=== PATIENT | female | born 1940 | race Caucasian/White ===

== ENCOUNTER 2016-12-15 16:21 | Inpatient (IN) | payer MEDICARE, BC ==
[~2016-12-15] VITALS: Ht 162.6 cm; Wt 73.5 kg
--- NOTE | 2016-12-15 00:33 | NUR ---
Received call back from Dr. Ruddy Sidhu who is carton repairer for [employer]. Made aware of new admission and Med Reconciliation being done. Per MD, he will take care of Medication Reconciliation. Addendum: 12/16/16 at 0253 by NADIA GARCIA RN Correction on Date and Time: Spoke with Dr. Ruddy Sidhu on 12/16 @ 9903.
--- NOTE | 2016-12-15 21:30 | NUR ---
Received patient via Private Transportation through daughter in stable condition. Assisted patient to wheelchair with 2 person assist and wheeled into Acute Rehab unit. Tolerated transfer well. Patient is A/O x3 and verbally responsive. Farsi speaking, but able to speak and understand Maltese as well. No c/o pain and discomfort. No acute distress. No SOB. Patient received on room air. No labored breathing noted. Surgical site to right knee. Dressing is clean, dry and intact. Handled gently. Daughter at bedside. Dr. Solomon made aware of new admission. Verbalized that he would come in to hospital to check on patient. All needs attended to promptly at this time. Call light within reach. Bed in low position. Will continue to monitor.
--- NOTE | 2016-12-15 22:30 | NUR ---
Dr. Moore in facility. Assisted MD to patient room. MD examined patient surgical site. Pictures taken. No s/s of bleeding to surgical site. No s/s of infection. Kept clean and dry. New dressing applied. MD spoke with patient and daughterZeinab regarding all their questions and concerns. & I went over medications with Daughter and patient. Per daughter wanted to change Ambien 10 mg to Ambien 5 mg. MD made aware. Code status order also initiated. POLST signed by daughter. Dr. Moore aware. New orders noted and carried out. POLST placed in chart. All needs attended to promptly. Call light within reach. Will continue to monitor.
[2016-12-15] MEDS ORDERED: OXYC10TA49 PO (23:17)
[2016-12-15] MEDS ORDERED: OXYC5TAB3 PO (23:17)
[2016-12-15] MEDS ORDERED: TRAM50TA2 PO ×2 (23:17)
[2016-12-15] MEDS ORDERED: ATOR20TA PO (23:17)
[2016-12-15] MEDS ORDERED: POLY119P2 PO (23:17)
[2016-12-15] MEDS ORDERED: DOCU100C36 PO (23:17)
[2016-12-15] MEDS ORDERED: APIX2.5T PO (23:17)
[2016-12-15] MEDS ORDERED: AMLO5TAB2 PO (23:17)
[2016-12-15] MEDS ORDERED: CALC-1008 PO (23:17)
--- NOTE | 2016-12-15 23:17 | NUR ---
Med recon finally initiated after getting patient settled in and assisting MD and daughter with concerns and information regarding Rehabilitation Unit. Called [facility] and left message with exchange. Awaiting call back.
--- NOTE | 2016-12-16 06:43 | NUR ---
Patient slept comfortably throughout the night. No c/o pain and discomfort. No acute distress. No SOB. SCD pumps on both extremities all night. Kept clean and dry. All needs attended to promptly. Call light within reach. Will continue to monitor.
[2016-12-16 08:00] VITALS: BP 113/67
--- NOTE | 2016-12-16 08:36 | NUR ---
Received patient awake, alert and oriented. With pain over right knee rated as 7/10. Ice pack applied over area. Still waiting for medication reconciliation. Call light within reach. will continue to monitor
--- NOTE | 2016-12-16 11:11 | NUR ---
Patient still in pain despite ice pack. Refused to participate with PT because of pain. Follow-up with medication reconciliation.
--- NOTE | 2016-12-16 12:10 | NUR ---
Medication reconciliation done. patient still with right knee pain rated as 7/10. PRN pain medication, Oxycodone 1tab given.
--- NOTE | 2016-12-16 19:30 | NUR ---
Received patient on bed alert, awake and oriented x4. Able to make needs known. No acute distress noted. Breathing even and unlabored with normal respirations. Still has right knee pain, 5/10. Vital signs stable. Call light within reach. All needs attended. Will continue to monitor.
[2016-12-16 20:54] VITALS: BP 124/73
[2016-12-17 06:22] LABS: BASOPHILS % (AUTO) 0.7 % (0.0-2.0); EOSINOPHILS # (AUTO) 0.3 K/uL (0.0-0.7); HEMATOCRIT 34.6 % (37-47); HEMOGLOBIN 11.1 G/DL (12.0-16.0); LYMPHOCYTES # (AUTO) 2.3 K/UL (0.8-4.8); LYMPHOCYTES % (AUTO) 34.9 % (20.5-51.5); MEAN CORPUSCULAR HEMOGLOBIN 27.1 UUG (27.0-31.0); MEAN CORPUSCULAR HGB CONC 32 g/dL (32.0-37.0); MEAN CORPUSCULAR VOLUME 84.3 FL (81.0-99.0); MONOCYTES # (AUTO) 0.6 K/UL (0.1-1.30); MONOCYTES % (AUTO) 8.7 % (0.0-11.0); NEUTROPHILS # (AUTO) 3.5 K/UL (1.8-8.9); NEUTROPHILS % (AUTO) 51.7 % (38.5-71.5); PLATELET COUNT (AUTO) 337 K/UL (150-450); RED BLOOD CELL COUNT(AUTO) 4.11 MIL/UL (4.2-5.4); WHITE BLOOD COUNT (AUTO) 6.7 K/UL (4.0-11.2)
[2016-12-17 06:27] LABS: CARBON DIOXIDE 33 mmol/L (21-32); CHLORIDE 104 mmol/L (98-107); GLUCOSE 104 mg/dL (74-106); POTASSIUM 4.5 mmol/L (3.5-5.1); UREA NITROGEN, BLOOD 12 mg/dL (7-18)
--- NOTE | 2016-12-17 06:49 | NUR ---
Patient slept well. No acute distress noted. Complained of pain, offered pain medication but pt refused. Applied iced pack on right knee. Assisted to the bathroom. Remains free from injury. Call light within reach. All needs attended. Will continue to monitor.
--- NOTE | 2016-12-17 07:20 | NUR ---
RECEIVED REPORT FROM INFLATABLE BUILDINGS LAMINATOR NURSE, PATIENT IN BED SLEEPING, NO EVIDENCE OF DISTRESS NOTED, BED IN LOW POSITION, SIDE RAILS UP X2.
[2016-12-17 08:50] VITALS: BP 129/69
--- NOTE | 2016-12-17 18:45 | NUR ---
PATIENT HAS EXPERIENCED INTERMITTENT EPISODES OF SEVERE PAIN AND CRYING. PATIENT AMBULATED WITH STANDBY TO RESTROOM, AND HAD A BOWEL MOVEMENT TODAY. PATIENT IS IN BED, NO EVIDENCE OF DISTRESS NOTED AT THIS TIME, BED IN LOW POSITION, SIDE RAILS UP X2.
[2016-12-17 20:56] VITALS: BP 135/70
--- NOTE | 2016-12-18 05:49 | NUR ---
AAOX4 CONTINENT OF BOWEL AND BLADDER. PAIN MED GIVEN FOR RIGHT LEG. OXYCODONE 5MG TAB GIVEN ON A PAIN LEVEL OF 6/10. RELIEF NOTED. SLEPT WELL. RIGHT KNEE INCISION DRESSING INTACT. OOB TO THE BR VOIDING WELL. WILL MONITOR PATIENT.
--- NOTE | 2016-12-18 07:10 | NUR ---
RECEIVED REPORT FROM SURVEYING TEACHER NURSE, PATIENT IN BED AWAKE ASKING TO GO TO THE RESTROOM. PATIENT DENIES PAIN AT THIS TIME, NO EVIDENCE OF DISTRESS NOTED. BED IN LOW POSITION, SIDE RAILS UP X2 .
[2016-12-18 08:00] VITALS: BP 119/63
--- NOTE | 2016-12-18 14:00 | NUR ---
CPM APPLIED TO RIGHT LEG. PATIENT TOLERATED WELL FOR 3 HOURS AND REQUESTED REMOVAL DUE TO FATIGUE. PATIENT HAS BEEN VERY PARTICULAR ON NEEDS AND HAS HAD THREE CRYING EPISODES THROUGHOUT THE DAY. PATIENT IS CURRENTLY IN BED, AWAKE, NO EVIDENCE OF DISTRESS NOTED. SIDE RAILS UP X2, BED IN LOW POSITION.
[2016-12-18 21:54] VITALS: BP 120/62
--- NOTE | 2016-12-19 05:59 | NUR ---
AAOX4 OOB WITH WALKER TO THE BR. VOIDING WITHOUT DIFFICULTY. RT KNEE DRESSING CLEAN DRY AND INTACT.NO ACUTE DISTRESS NOTED. WILL MONITOR PATIENT. MEDICATED FOR PAIN NEEDED. RELIEF NOTED. KEPT COMFORTABLE. AFEBRILE. FALL PRECAUTIONS MAINTAINED.
--- NOTE | 2016-12-19 07:30 | NUR ---
on bed resting comfortable. no distress verbalized. very anxious and wanted immediate care with physical therapy. anxious about bruise on the lower portion of the knee incision. seemed like bruise subsiding. emotional support provided, kept all questions and requested provided. aware still PT schedule and MD visit to come.
[2016-12-19 08:00] VITALS: BP 113/63
--- NOTE | 2016-12-19 11:31 | NUR ---
seen by dr Bearden. patient felt glad and relieved of concern. very glad of visit and discussion with care.
--- NOTE | 2016-12-19 12:30 | NUR ---
had cpm at -4 and 55, tolerated from 0930 to 1230, refused to do cpm till tomorrow.
--- NOTE | 2016-12-19 15:30 | NUR ---
daughter at bedside, supportive of patient care. appreciative of service.
--- NOTE | 2016-12-19 19:28 | NUR ---
family at bedside, supportive of patient. comfortable for now. discussed paln for tomorrow , will see what she will do, re cpm and meds pain
--- NOTE | 2016-12-19 20:00 | NUR ---
Patient alert, awake and oriented x4. Family at bedside during this time. No acute distress noted. No SOB. Complained of right knee pain, medicated with oxycodone 5mg. Relief noted. Continent on both bowel and bladder. Vital signs stable. DVT pumps on. All needs attended. Will continue to monitor.
[2016-12-19 21:03] VITALS: BP 135/71
--- NOTE | 2016-12-20 06:38 | NUR ---
Patient slept well. No acute distress noted. Denies pain. Able to tolerate ambulation when going to the bathroom. DVT pumps on. Call light within reach. All needs attended.
--- NOTE | 2016-12-20 07:51 | NUR ---
Sleeping, comfortable. SCD's on BLE
[2016-12-20 08:17] VITALS: BP 122/70
--- NOTE | 2016-12-20 10:51 | NUR ---
Complaining of severe pain after exercises with PT. Tramadol 100 mg po given. Refused CPM at this time
--- NOTE | 2016-12-20 13:00 | NUR ---
Discussed with Dr. Rasmussen regarding pain management, will change medication.
--- NOTE | 2016-12-20 14:30 | NUR ---
Pain medicine not changed, followed up with Dr. Rasmussen. Oxycodone 10 mg po given Placed on CPM.
--- NOTE | 2016-12-20 17:00 | NUR ---
CPM off. Assisted to the bathroom then back to bed. Wound care done to right knee. Repositioned in bed comfortably.
--- NOTE | 2016-12-20 20:00 | NUR ---
Received pt on bed alert and awake. No complaints of pain. Breathing even and unlabored with normal respirations. calm and cooperative to care. Assisted to the bathroom. Call light within reach. All needs attended. Will continue to monitor.
[2016-12-20 20:12] VITALS: BP 120/72
--- NOTE | 2016-12-21 06:46 | NUR ---
Patient slept comfortably throughout the night. No complaints of pain or discomfort. No acute distress noted. Call light within reach. All needs attended.
--- NOTE | 2016-12-21 07:30 | NUR ---
RECEIVED PT LYING IN BED COMPLAINING OF RIGHT KNEE PAIN LEVEL 7 ,RIGHT KNEE DRESSING CLEAN AND INTACT .NO SLIGHTLY SWOLLEN ,GOOD PEDAL PULSES ABLE TO MOVED RIGHT LEG
[2016-12-21 08:41] VITALS: BP 129/63
--- NOTE | 2016-12-21 09:00 | NUR ---
PT C/O OF PAIN ON THE RIGHT KNEE LEVEL 7, MEDICATED WITH OXYCODONE 5MG PO 1TAB BUT PT DECIDED TO HAVE 2 TABLETS A TOTAL OF 10MG PO. NOTIFIED PHARMACIST AND I WAS TOLD TO TO OVERRIDE THE MEDICATION.
--- NOTE | 2016-12-21 09:00 | NUR ---
MEDICATED WITH 10 MG PO OF OXYCODONE PRIOR TO CPM EXERCISES
--- NOTE | 2016-12-21 14:05 | NUR ---
Rehab Team Conference 12/21/16
[2016-12-21 20:00] VITALS: BP 116/70
--- NOTE | 2016-12-22 05:34 | NUR ---
Slept most of the night,got up to urinate,able to move on her own in bed.No acute distress noted or voiced,Easily awakens
[2016-12-22 08:00] VITALS: BP 108/56
[2016-12-22 20:21] VITALS: BP 121/64
--- NOTE | 2016-12-23 06:55 | NUR ---
END OF SHIFT NOTES. PT SLEPT WELL THROUGHOUT SHIFT. IN STABLE CONDITION. ALL NEEDS ATTENDED. SAFETY MAINTAINED. CALL LIGHT WITHIN REACH.
--- NOTE | 2016-12-23 07:30 | NUR ---
113/64 B/P, 95% on room air, 16 respirations, 74 pulse, 98.1 F oral temp, Patient noted sitting in bed watching tv, no signs of distress noted, call light in reach, bed locked, complaints of mild in right leg, no request for pain medication at this time
--- NOTE | 2016-12-23 09:25 | NUR ---
Patient request pain medication for pain level 7/10, Tramadol 100 mg offered, patient states she does not want "white pills' referring to Tramadol, she wants "red pills" referring to oxycodone, Tramadol wasted, oxycodone given per orders.
--- NOTE | 2016-12-23 09:38 | NUR ---
Wound dressing change to right knee, no signs and symptoms of infection noted to surgical sight, Adhesive surgical dressing to site
[2016-12-23 10:34] VITALS: BP 113/64
--- NOTE | 2016-12-23 19:20 | NUR ---
RECEIVED PATIENT IN BED, ALERT ORIENTED, NO SOB NO CHEST PAIN NOTED, COMPLAIN OF R KNEE PAIN BUT PREFER TO TAKE PAIN MEDS LATER, R KNEE DRESSING INTACT, CLEAN AND DRY, ASSISTED WITH TOILETING, AND ADL'S, CALL LIGHT WITHIN REACH.
--- NOTE | 2016-12-24 06:51 | NUR ---
PATIENT SLEPT MOST OF THE NIGHT, NO SOB NO CHEST PAIN, USES BEDPAN FOR BLADDER ELIMINATION, KEPT CLEAN AND DRY, CALL LIGHT WITHIN REACH. NO ASE OF BIBI NOTED AT THIS TIME, R KNEE DRESSING INTACT. CONT TO MONITOR.
[2016-12-24 08:00] VITALS: BP 130/73
--- NOTE | 2016-12-24 19:00 | NUR ---
RECEIVED PATIENT IN BED, ALERT ORIENTED, NO SOB NO CHEST PAIN NOTED, COMPLAIN OF PAIN ON R KNEE, BUT WANTED TO TAKE MEDS LATER ON, RESPECT PATIENT WISHES, DRESSING ON R KNEE INTACT, CLEAN AND DRY, CALL LIGHT WITHIN REACH.
[2016-12-24 20:37] VITALS: BP 123/65
--- NOTE | 2016-12-25 05:41 | NUR ---
PATIENT SLEPT GOOD, ASSISTED WITH TOILETING, USES BED SIDE COMMODE, COMPLAIN OF PAIN ON R KNEE, MEDICATED EARLY FOR PAIN, WITH HELP AFTER ONE HOUR, LEFT KNEE DRESSING INTACT, CLEAN AND DRY, NO SOB NO CHEST PAIN NOTED, CALL LIGHT WITHIN REACH.
[2016-12-25 07:05] VITALS: BP 119/69
--- NOTE | 2016-12-25 08:00 | NUR ---
Pt received awake,alert.Plan of care discussed regarding pain management.Pt remains on room air,no SOB noted,Dressing to Right knee intact.Will continue to monitor.
--- NOTE | 2016-12-25 11:30 | NUR ---
Pt received Tramadol 100 mg PO for breakthrough pain.Will monitor.
--- NOTE | 2016-12-25 17:30 | NUR ---
Pt remains awake,alert.No SOB noted.Denies pain,discomfort.ON CPM ,tolerating well.
--- NOTE | 2016-12-26 08:00 | NUR ---
Awake, alert, oriented x 4. RLE with good color, sensation, movement
[2016-12-26 08:44] VITALS: BP 114/62
[2016-12-26 09:07] VITALS: BP 114/62
--- NOTE | 2016-12-26 13:00 | NUR ---
Had shower, change of dressing done to right knee.
--- NOTE | 2016-12-26 15:03 | NUR ---
With discharge order to home with home health arranged. DME received. Prescription given and received yesterday. DC instruction given to patient and daughter, verbalized understanding.
--- NOTE | 2016-12-26 16:55 | NUR ---
prescription faxed to preferred pharmacy. Went home per wheelchair in fair condition, not in distress, afebrile, accompanied by daughter.
== END 2016-12-26 16:45 | disposition home health service (06) | DRG 554 ==
PROVIDERS: ADMIT Physical Medicine & Rehabilitation Pain Medicine; ATTEND Physical Medicine & Rehabilitation Pain Medicine
DX: M17.11 Unilateral primary osteoarthritis, right knee (principal); D62 Acute posthemorrhagic anemia; I10 Essential (primary) hypertension; E78.5 Hyperlipidemia, unspecified; E78.00 Pure hypercholesterolemia, unspecified; Z85.3 Personal history of malignant neoplasm of breast; Z96.651 Presence of right artificial knee joint; F41.9 Anxiety disorder, unspecified; Z47.1 Aftercare following joint replacement surgery
CPT/HCPCS: 36415; 85025; 92526; 92610; 97110; 97112; 97116; 97165; 97530; 97535; A4663